=== PATIENT | male | born 1990 | race American Indian/Alaskan Native ===

== ENCOUNTER → 2021-03-28 | Outpatient (CLI) | payer OTHER | END | disposition home or self-care (01) | LOC: LAB SHORT 12:36 | DX: J02.9 Acute pharyngitis, unspecified (principal) | CPT/HCPCS: 87081 ==

== ENCOUNTER → 2021-05-24 | Outpatient (CLI) | payer OTHER | END | disposition home or self-care (01) | LOC: LAB SHORT 16:20 | DX: Z30.8 Encounter for other contraceptive management (principal) ==

== ENCOUNTER 2024-03-15 10:05 | Day surgery (SDC) | payer OTHER ==
[~2024-03-15] VITALS: Ht 170.2 cm; Wt 85.6 kg
[~2024-03-15 10:05] MED LIST: EPINEPhrine HCl 1 MG / ML 30ML Vial ONE; Lactated Ringer's 1,000 ML IV ONE; propofoL 0 ML IV ONE
[2024-03-15] MEDS ORDERED: IBUP200 PO (10:25)
[2024-03-15] MEDS ORDERED: CLAR500 PO (10:26)
[2024-03-15] MEDS ORDERED: AMOX-CLAV 875-1 EAC5 (10:27)
[2024-03-15] MEDS ORDERED: PRED20 PO (10:27)
[2024-03-15] MEDS ORDERED: IBUP200 (10:27)
[2024-03-15] MEDS ORDERED: Lactated Ringer's 1,000 ML IV ONE ×3 (10:33→16:24)
[2024-03-15] MEDS ORDERED: Lidocaine 2%-Epineph 1:200000 20 ML SDV ONE (13:19)
[2024-03-15] MEDS ORDERED: propofoL 20 ML IV ONE ×2 (13:24→14:36)
[2024-03-15] MEDS ORDERED: Midazolam HCl 1MG / ML 2ML Vial ONE (13:25)
[2024-03-15] MEDS ORDERED: FentaNYL Citrate 50 MCG/ML 2 ML Injection ONE ×2 (13:25→14:44)
[2024-03-15] MEDS ORDERED: Dexamethasone Sod Phos 10 MG/ML 1ML VIAL ONE (13:29)
[2024-03-15] MEDS ORDERED: Ondansetron HCl 2 MG / ML 2ML Vial ONE (13:29)
[2024-03-15] MEDS ORDERED: Sugammadex Sodium 200 MG/2ML SDV (100 MG/ML) ONE (13:29)
[2024-03-15] MEDS ORDERED: Rocuronium Bromide 10 MG/ML 5ML Injection IV ONE (13:29)
[2024-03-15] MEDS ORDERED: propofoL 60 ML IV ONE (13:37)
--- NOTE | 2024-03-15 13:41 | NUR ---
03/15/24 1341 MARBELLA FINCH PT UP TO VOID URINE PRIOR TO OR
[2024-03-15] MEDS ORDERED: Tranexamic Acid 100 ML IV ONE (14:11)
--- NOTE | 2024-03-15 14:19 | NUR ---
03/15/24 1419 Kelsy Aponte ALL 30ML OF EPI USED TO SOAK PLEDGETTS DURING PROCEDURE.
[2024-03-15] MEDS ORDERED: Phenylephrine HCl 100 MCG/ML-NS 10MLSYR (1MG/10ML) ONE (14:35)
[2024-03-15] MEDS ORDERED: propofoL 50 ML IV ONE ×2 (14:49→15:49)
--- NOTE | 2024-03-15 16:54 | NUR ---
03/15/24 1654 Radha Gaona PT TRANSFERRED INTO CHAIR WITH STANDBY ASSIST FROM RN. PT IS NOW IN RECLINER WITH LEGS ELEVATED AND DRINK AT CHAIRSIDE. PT'S CALLED TO UPDATE STATUS. VSS. CALL LIGHT IN REACH. IV PATENT. NO COMPLAINTS OF NAUSEA; PT STATES "I AM SO HUNGRY." PT DENIES PAIN AT THIS TIME.
[2024-03-15 17:02] VITALS: BP 138/96
== END 2024-03-15 17:20 | disposition home or self-care (01) ==
LOC: ORSCSDS 10:05
PROVIDERS: Otolaryngology
PROC: 09DU4ZZ Extraction of Right Ethmoid Sinus, Percutaneous Endoscopic Approach (ICD-10-PCS; principal; 2024-03-15 11:45)
PROC: 09SL0ZZ Reposition Nasal Turbinate, Open Approach (ICD-10-PCS; principal; 2024-03-15 11:45)
PROC: 09BM0ZZ Excision of Nasal Septum, Open Approach (ICD-10-PCS; principal; 2024-03-15 11:45)
PROC: 09DV4ZZ Extraction of Left Ethmoid Sinus, Percutaneous Endoscopic Approach (ICD-10-PCS; principal; 2024-03-15 11:45)
DX: J32.8 Other chronic sinusitis (principal); J34.2 Deviated nasal septum; J34.3 Hypertrophy of nasal turbinates; E66.9 Obesity, unspecified; Z68.30 Body mass index [BMI] 30.0-30.9, adult
CPT/HCPCS: 88305; 88311; C1713; C2625; J0171; J1100; J2250; J2371; J2405; J2704; J3010; J7120